=== PATIENT | male | born 2000 | race Caucasian/White ===

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

== ENCOUNTER 2024-02-12 12:23 | Emergency (ER) | payer BC, OTHER, SELFPAY ==
[2024-02-12 12:24] VITALS: BP 141/60; PULSE 56; RESP 14; TEMP 36.2; O2SAT 97; BMI 22.3
--- NOTE | 2024-02-12 12:31 | RAD_ITS ---
STUDY: X-RAY - LEFT HAND REASON FOR EXAM: Male, 23 years old. hand got caught in rope swing yesterday TECHNIQUE: 3 view(s) of the hand. COMPARISON: None. FINDINGS: Acute oblique mildly displaced fracture is present through the head and neck of the middle phalanx of the third finger. Acute comminuted fracture through the mid shaft to neck of the fourth proximal phalanx with a large oblique component and mild displacement of the major fracture fragments. Mild to moderate soft tissue swelling is present around the fracture sites.. Normal radiocarpal articulation. Normal distal radioulnar joint. Normal visualized carpal bones. Normal carpal articulations Normal carpometacarpal articulation of the thumb. Normal second through fifth carpometacarpal joints. Normal metacarpi. Normal metacarpophalangeal joint of the thumb. Normal interphalangeal joint of the thumb. Normal proximal and distal phalanges of the thumb. Normal metacarpophalangeal joints of the second through fifth fingers. Normal proximal and distal interphalangeal joints of the second through fifth fingers. Normal remaining phalanges. RAD/Hand Min 3 Views IMPRESSION: 1. Acute fracture of the third middle phalanx 2. Acute comminuted fracture of the fourth proximal phalanx Electronically Signed: Stephon Garcia MD at 13:36 EDT ,
--- NOTE | 2024-02-12 12:31 | EDS_ITS ---
HPI <CR Javier - Last Filed: 02/12/24 13:18> History of Present Illness Chief Complaint: Upper Extremity Injury Narrative Narrative: 23-year-old male was on a rope swing yesterday and when landing fell and caught himself with both hands on a josé miguel surface. He developed pain and swelling in the left hand and his ring finger looked dislocated and he popped it back into place. Today he has persistent pain over the knuckles and ring finger. No weakness or numbness or tingling. He is right-hand dominant. COUNTS INCLUDE 234 BEDS AT THE [facility] <CR Javier - Last Filed: 02/12/24 13:18> COUNTS INCLUDE 234 BEDS AT THE [facility] Medical History (Updated 02/12/24 @ 13:[address] Ambrose Castle MD) Inguinal adenopathy Severe headache Home Medications ?Medication ?Instructions ?Recorded ?Last Taken ?Type multivitamin 1 tab PO DAILY 05/14/19 Unknown History amoxicillin 500 mg tablet 500 mg PO TID #30 tabs 07/26/21 Unknown Rx Allergy/AdvReac Type Severity Reaction Status Date / Time No Known Allergies Allergy Verified 02/12/24 12:25 Surgical History Hx of tympanostomy tubes Social History Smoking Status: Never smoker alcohol intake: never ROS <CR Javier - Last Filed: 02/12/24 13:18> ROS ED ROS Narrative Neuro: Negative for motor/sensory dysfunction. Skin: Negative for wound. Musc: Positive for left hand pain, swelling, trauma. EXAM <CR Javier - Last Filed: 02/12/24 13:18> Physical Exam Narrative Exam Narrative: CONST: Patient sitting in no acute distress. EYES: Normal inspection. SKIN: Color normal, no rash, warm, dry, intact. EXTREMITIES: Soft tissue swelling over the left dorsal hand over third/fourth/MCPs. Bruising and mild swelling of left ring finger. He is able to fully flex and extend all MCP DIP and PIP joints. There is some laxity of the ring finger ulnar and radial collateral ligaments. 2+ radial pulse and brisk cap refill. NEURO: Alert and answering questions appropriately. PSYCH: Normal affect. Const Vital Signs: 02/12/24 12:24 Temperature 97.2 F L Temperature Source Temporal Pulse Rate 56 L Respiratory Rate 14 Blood Pressure 141/60 H Blood Pressure Mean 87 Pulse Ox 97 Oxygen Delivery Method Room Air [facility] <CR Javier - Last Filed: 02/12/24 13:18> [facility] Narrative Medical decision making narrative: History gathered from: Patient and parent Differential: Hand contusion versus fracture Patient fell landing on his outstretched hands yesterday and has left dorsal hand bruising and pain which extends into the middle and ring fingers. He is tender over the left third and fourth MCPs and digits. There is mild ulnar and radial collateral ligament laxity in the ring finger. He is neurovascularly intact. ED attending interpretation of the left hand x-ray shows a comminuted ring finger proximal phalanx fracture and an additional fracture in the middle finger middle phalanx. I placed an AP splint to immobilize the third fourth and fifth digits up to the mid forearm. He is neurovascularly intact after application. I discussed symptomatic care at home and provided orthopedic follow-up. There is no on-call no doc orthopedic listed so he was given Dr. Jacome's office number. He was comfortable with this plan and discharged in stable condition. I have personally performed a face to face assessment of the patient and have reviewed the VALARIE Note. I performed a substantive portion of the visit including all aspects of the following. My lopez findings include: History is remarkable for blunt trauma to his left hand and long and ring finger. This occurred yesterday. He presents because of pain, swelling and limited use. He is right-hand dominant. He denies paresthesia, anesthesia medics. Exam is distal of the PIP joint of the left long and ring finger. Flexor digitorum superficialis and flexor digitorum profundus as well as the extensor commonness tendon is functionally intact for both digits. There is no subungual hematoma noted. Capillary refill is normal. Sensation is normal. Patient has laxity of the radial collateral ligament of his left ring finger. There is no laxity noted in the long finger. There is also pain the patient is swelling over the MCP joint of the long and ring finger. Median, radial and ulnar function intact. Medical Decision Making x-ray of the hand was obtained to assess for fracture. He believes he dislocated his PIP joint left ring finger and reduced it yesterday. This would explain the laxity of his radial collateral ligament of the PIP joint. Other additions or changes: [None] <Dr. Ambrose Castle MD - Last Filed: 02/12/24 13:22> [facility] Narrative Medical decision making narrative: History gathered from: Patient and parent Differential: Hand contusion versus fracture Patient fell landing on his outstretched hands yesterday and has left dorsal hand bruising and pain which extends into the middle and ring fingers. He is tender over the left third and fourth MCPs and digits. There is mild ulnar and radial collateral ligament laxity in the ring finger. He is neurovascularly intact. ED attending interpretation of the left hand x-ray shows a comminuted ring finger proximal phalanx fracture and an additional fracture in the middle finger middle phalanx. I placed an AP splint to immobilize the third fourth and fifth digits up to the mid forearm. He is neurovascularly intact after application. I discussed symptomatic care at home and provided orthopedic follow-up. There is no on-call no doc orthopedic listed so he was given Dr. Jacome's office number. He was comfortable with this plan and discharged in stable condition. I have personally performed a face to face assessment of the patient and have reviewed the VALARIE Note. I performed a substantive portion of the visit including all aspects of the following. My lopez findings include: History is remarkable for blunt trauma to his left hand and long and ring finger. This occurred yesterday. He presents because of pain, swelling and limited use. He is right-hand dominant. He denies paresthesia, anesthesia medics. Exam is distal of the PIP joint of the left long and ring finger. Flexor digitorum superficialis and flexor digitorum profundus as well as the extensor commonness tendon is functionally intact for both digits. There is no subungual hematoma noted. Capillary refill is normal. Sensation is normal. Patient has laxity of the radial collateral ligament of his left ring finger. There is no laxity noted in the long finger. There is also pain the patient is swelling over the MCP joint of the long and ring finger. Median, radial and ulnar function intact. Medical Decision Making x-ray of the hand was obtained to assess for fracture. He believes he dislocated his PIP joint left ring finger and reduced it yesterday. This would explain the laxity of his radial collateral ligament of the PIP joint. Other additions or changes: Patient was referred to Dr. Jacome who does not hand orthopedics since no one is assigned for orthopedic call case without discussed with any orthopedics. Procedures <Dr. Ambrose Castle MD - Last Filed: 02/12/24 13:22> Upper Extremity Splints Upper Extremity Splint: Orthoglass (AP short arm) Splint Fabrication: Fabricated Location: Left Discharge Plan Triage Chief Complaint: Upper Extremity Injury ED Midlevel Provider: Yuridia Mendoza ED Provider: Ambrose Castle Dx/Rx/DC Orders Clinical Impression: Closed fracture of phalanx of left middle finger, Contusion of left hand including fingers, Closed comminuted fracture of proximal phalanx of finger Instructions: ED Fracture, Finger, Closed Prescriptions: No Action multivitamin Tablet 1 tab PO DAILY amoxicillin 500 MG tablet 500 mg PO TID Qty: 30 0RF Primary Care Provider: Care Physician,No Primary Referrals: Georges Jacome, [Med Staff - Active Staff] - Care Physician,No Primary [Primary Care Provider] - Activity Restrictions/Additional Instructions: Keep the splint clean and dry. You will need to cover with a bag for showering. Alternate Tylenol and Motrin as needed for pain. Call the orthopedic doctor for follow-up appointment. Print Language: Romansh Disposition Disposition: Home, Self Care Discharge Date/Time: 02/12/24 13:22
== END 2024-02-12 13:22 | disposition home or self-care (01) ==
PROVIDERS: Emergency Provider Emergency Medicine; Visit Provider Emergency Medicine
DX: S62.623A Displaced fracture of middle phalanx of left middle finger, initial encounter for closed fracture (principal); S60.222A Contusion of left hand, initial encounter; W17.89XA Other fall from one level to another, initial encounter; S62.615A Displaced fracture of proximal phalanx of left ring finger, initial encounter for closed fracture
CPT/HCPCS: 29130; 73130; 99282